=== PATIENT | female | born 1980 | race Caucasian/White ===

== ENCOUNTER 2023-12-23 12:24 | Day surgery (SDC) | payer OTHER ==
--- OUTSIDE RECORDS SUMMARY | 2023-12-23 12:27 | XMS REPORT | Continuity of Care Document ---
Author Name Unknown Address [address] [place] [address] [facility] thconnect Address [address] [place] [address] Care Team Providers Care Life Sciences Teacher Name Role Phone PCP, PATIENT DOES NOT HAVE A Primary Care Physic juanita Unavailable WAYNE ESCALERA Attending Clinician Unavail able Masha Self DO Attending Clinician [phone] MASHA SELF Attending Clinician Unavailab MASHA Moody Attending Clinician Unavailab Ni Baldwin RN Attending Clinician Unavailab radha Clay, Ang Db Test Attending Clinician UnavailRico Hay Attending Clinician [phone] RICO DUPONT Attending Clinician Unavailable Doctor Unassigned, [place] Attending Clinician U navailable Payers Payer Name Policy Type Policy Number Effective Date Expirati on Date Source Allergies, Adverse Reactions, Alerts Allergy Name Allergy Type Status Severity Reaction(s) Onset Date Inactive Date Treating Clinician Comments Source PROMETHA ZISUMANTH [employer] INGREDI Active Other-Cmnt 12-20 00:00: 00 [facility] Prometha zine Propensi ty to adverse reaction s to drug Active Other - See comments 12-20 00:00: 00 Muscle cramping. [facility] NO KNOWN ALLERGIE S Drug Class Active [facility] Social History Social Habit Start Date Stop Date Quantity Comments Source Sexual orientation U [facility] Exposure to SARS-CoV-2 (event) Not sure [facility] Sex assigned at 1980 00:00:00 1980 00:00:00 [facility] Smoking Status Start Date Stop Date Source Tobacco smoking consumption unknown [facility] Medications Ordered Medication Name Filled Medication Name Start Date Stop Date Current Medication? Ordering Clinician Indication Dosage Frequency Signature (SIG) Comments Components Source ketorolac (TORADOL) injection 30 mg 12-20 18:00: 00 12-20 18:04 :00 No 30mg 30 mg, Slow IV Push, ONCE, 1 dose, On Wed12/21/23 at 1300, Routine [facility] NaCl 0.9% (NS) bolus infusion 1,000 mL 12-20 18:00: 00 12-20 19:20 :00 No 1000mL at 999 mL/hr, 1,000 mL, IV Infusion, ONCE, 1 dose, On Wed12/21/23 at 1300, MANN [facility] ondansetron (ZOFRAN (PF)) injection 4 mg 12-20 17:15: 00 12-20 18:04 :00 No 4mg 4 mg, Slow IV Push, ONCE, 1 dose, On Wed12/21/23 at 1215, MANN [facility] ketorolac 10 mg tablet 12-20 00:00: 00 Yes [id number] 10mg Take 1 tablet by mouth every 6 (six) hours as needed for Pain (scale 1-3). [facility] ondansetron 4 mg disintegrat ing tablet 12-20 00:00: 00 Yes [id number] 4mg Take 1 tablet by mouth every 8 (eight) hours as needed for Nausea and Vomiting (N/V). [facility] Vital Signs Vital Name Observation Time Observation Value Comments Saba stacey Systolic blood pressure 2023-12-21 19:20:00 121 mm[Hg] [facility] Diastolic blood pressure 2023-12-21 19:20:00 78 mm[Hg] [facility] Heart rate 2023-12-21 19:20:00 [facility] Body temperature 2023-12-21 19:20:00 36.72 [facility] Oxygen saturation in Arterial blood by Pulse oximetry 2023-12-21 19:20:00 100 /min [facility] Respiratory rate 2023-12-21 16:58:00 18 /min [facility] Body height 2023-12-21 16:58:00 172.7 cm [facility] Body weight 2023-12-21 16:58:00 67.132 kg [facility] BMI 2023-12-21 16:58:00 22.50 kg/m2 [facility] Procedures Procedure Date / Time Performed Performing Clinicia n Source COMP. METABOLIC PANEL (87038) 2023-12-21 17:12:00 Masha Self [facility] CBC WITH DIFF 2023-12-21 17:12:00 [facility]IS 2023-12-21 17:12:00 M[facility] Encounters Start Date/Time End Date/Time Encounter Type Admission Type Attending [facility] Care Facility Care Department Encounter ID Source 2023-12-23 07:49:00 [facility] [id number] [facility] 2023-12-21 12:01:00 2023-12-21 14:29:00 Emergency Masha Self [facility] [id number] [facility] 2023-12-21 12:01:00 2023-12-21 14:29:00 Emergency X MASHA SELF SANDRA [facility] ERT [id number] [facility] 2021-01-12 00:00:00 2021-01-12 00:00:00 Letter (Out) Ni Goldsmith [facility] [id number] [facility] 2021-01-11 17:31:46 2021-01-11 17:41:46 Laboratory Only Only, Ang Db Test Tyreljohnathonsheeba Lázaroadelfo [facility] Eddie Rodriguez?[facility] [id number] [facility] 2021-01-11 17:30:00 2021-01-11 17:30:00 Outpatient R HARVEYSheebaRICO [facility] [id number] [facility] 2021-01-11 00:00:00 2021-01-11 00:00:00 Letter (Out) Doctor Unassigned, [place] [id number] [facility] 2021-01-11 00:00:00 2021-01-11 00:00:00 Letter (Out) Doctor Unassigned, [place] [id number] [facility] 2021-01-11 00:00:00 2021-01-11 00:00:00 Letter (Out) Doctor Unassigned, [place] [id number] [id number] [facility] 2021-01-11 00:00:00 2021-01-11 00:00:00 Letter (Out) Doctor Unassigned, [place] [id number] [facility] Results Test Description Test Time Test Comments Results Resul t Comments Source SCR MAMM BILATERAL ROMERO CAD DIGITAL 2021-05-22 10:10:48 Name: Lissa : 1980 Sex: F - SCR MAMM BILATERAL ROMERO CAD DIGITALBILATERAL DIGITAL SCREENING MAMMOGRAM 3D/2D WITH CAD: 2CLINICAL: Asymptomatic Family history of breast cancer, Mother, 66.Family history of breast cancer, Maternal Grandmother, 55. Digital breast tomosynthesis was performed in addition to routine CC and MLO views. Current mammographic images were evaluated by [employer] Image[employer] CAD (computer-aided detection) software. No prior exams were available for comparison. The tissue of both breasts is heterogeneously dense. This may lower the sensitivity of mammography. There are benign-appearing calcifications in both breasts. There also are post operative findings in the left breast. Bilateral breast implants are intact. No suspicious mass, architectural distortion, malignant type calcification, or lymph node abnormality detected. IMPRESSION: BENIGNThere is no mammographic evidence of malignancy. Resume annual screening mammography in one year. RECOMMEND SUPPLEMENTAL BILATERAL SCREENING BREAST ULTRASOUND DUE TO DENSE BREAST TISSUE AND FAMILY HISTORY OF BREAST CANCER (lifetime risk score: 22.4%).[employer] [place] [employer] recommends annual screening breast MRI in addition to mammography for women with a lifetime risk of breast cancer greater than 20%. Charity Leonardo M.D. scg/:05/22/2021 10:10:48 Nuts And Bolts Assembler: Susana Pressley MM, [facility] Mammographyletter sent: BIRADS 1-2 Normal Mammogram BI-RADS: 2 Benign Notes Date/Time Note Provider Source 2023-12-21 11:54:42 Patient c/o flank pain on the right side, vomiting. States that she has a history of kidney stones in the past. Started having pain on Wednesday, but subsided. Reoccurred today with symptoms worsening. 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 History of Present Illness: The patient presents from home for evaluation for right sided flank pain that started on Wednesday and went away and then returned today, which is Wednesday. She denies any injury or trauma. She does have a history of kidney stones and feels like this is another 1. No dysuria or hematuria. She also complains of nausea and vomit started today. No fevers or chills. No medication taken prior to arrival. She has required a ureter stent as well as lithotripsy with her prior kidney stones. She reports her last period was 2 weeks ago and she denies being . Here prevention. Past Medical History/Immunizations: History reviewed. No pertinent past medical history. Tetanus received in last 5 years: Unknown Allergies: Allergies Allergen Reactions Promethazine Other - See comments Muscle cramping. Past Social History: Substance & Sexual Activity No substance use or sexual activity history on file. Past Surgical History: History reviewed. No pertinent surgical history. Review of Systems: Review of Systems Physical Exam: ED Triage Vitals [12/21/23 1158] Weight 67.1 kg (148 lb) Actual or estimated Height 1.727 m (5' 8") BP (!) 149/90 Pulse 80 Resp 18 Temp 36.4 ?C (97.5 ?F) Temp source Oral SpO2 100 % Measured on Room air Physical Exam Radiology: CT ABDOMEN PELVIS WO CONTRAST Preliminary Result EXAM: CT ABDOMEN PELVIS WO CONTRAST HISTORY: 43 years-old Female; Right flank pain, kidney stone suspected . TECHNIQUE: Contiguous axial imaging from the level of the lung bases through the proximal thighs was performed without the intravenous administration of contrast. Coronal and sagittal reconstructions were obtained. COMPARISON: None FINDINGS: LOWER THORAX: The lung bases are clear. LIVER: The liver is normal in size and contour. No focal hepatic lesion is seen within the limitations of a non-contrasted examination. GALLBLADDER AND BILIARY TREE: The gallbladder is physiologically distended and appears unremarkable. No radiopaque gallstones are seen. No intra or extrahepatic biliary ductal dilation is visualized. SPLEEN: The spleen is normal in size. A splenule is present. PANCREAS: No ductal dilation or masses are visualized. ADRENAL GLANDS: No adrenal masses are seen. KIDNEYS: A 0.9 cm calculus is present in the right proximal ureter near the UPJ junction causing mild hydroureteronephrosis. A 0.5 cm right renal calyceal stone is also visualized. Punctate left cortical calcification is visualized. No contour deforming solid masses are visualized. PELVIS/BLADDER: The bladder is mildly distended. Circumferential bladder wall thickening with perivesical fat stranding is seen, may be secondary to underdistention versus cystitis. The uterus is anteverted and retroflexed. The uterus appears unremarkable. Multiple large follicles are seen in bilateral ovaries. The right ovary measures 3.4 x 5.2 cm and the left ovary measures 3.3 x 2.8 cm. GI TRACT: No dilation or bowel wall thickening is seen. The appendix appears unremarkable. A 0.3 cm appendicolith is present. PERITONEUM AND RETROPERITONEUM: No intra-abdominal free air or fluid collection is visualized. LYMPH NODES: No pathologically enlarged or morphologically abnormal lymph node is seen. VESSELS: The vessels appear unremarkable within limitations of a non-contrasted examination. BONES AND SOFT TISSUES: Schmorl's node is noted in the superior endplate of the T12 vertebral body. A subcentimeter sclerotic lesion is present in the L1 vertebral body, likely representing a bone island. IMPRESSION 1. A 0.9 cm calculus is present in the right proximal ureter near the UPJ junction causing mild hydroureteronephrosis. A 0.5 cm right nephrolithiasis. 2. Multiple large follicles are seen in bilateral ovaries, likely physiologic. Recommend further evaluation with ultrasound if clinically indicated. Preliminary Report Dictated by Resident: Andrade Smith Lab Results: Lab Results CBC WITH DIFF - Abnormal Result Value Ref Range WBC 15.18 (*) 4.30 - 11.10 10*3/?L RBC 4.60 3.93 - 5.25 10*6/?L HGB 13.6 11.6 - 15.0 g/dL HCT 41.0 35.7 - 45.2 % MCV 89.1 80.6 - 95.5 fL MCH 29.6 25.9 - 32.8 pg MCHC 33.2 31.6 - 35.1 g/dL RDW-SD 43.0 39.0 - 49.9 fL RDW-CV 13.1 12.0 - 15.5 % PLT 325 166 - 358 10*3/?L MPV 10.5 9.5 - 12.9 fL NRBC/100 WBC 0.0 0.0 - 10.0 /100 WBCs NRBC x10 3 <0.01 10*3/?L GRAN MAT (NEUT) % 87.3 % IMM GRAN % 0.50 % LYMPH % 8.5 % MONO % 3.5 % EOS % 0.0 % BASO % 0.2 % GRAN MAT x10 3 (ANC) 13.25 (*) 1.88 - 7.09 10*3/uL IMM GRAN x10 3 0.08 (*) 0.00 - 0.06 10*3/uL LYMPH x10 3 1.29 (*) 1.32 - 3.29 10*3/uL MONO x10 3 0.53 0.33 - 0.92 10*3/uL EOS x10 3 <0.03 (*) 0.03 - 0.39 10*3/uL BASO x10 3 0.03 0.01 - 0.07 10*3/uL URINALYSIS - Abnormal APPEARANCE Clear Clear COLOR Yellow Yellow PH 9.0 (*) 4.8 - 8.0 SP GRAVITY 1.015 1.003 - 1.030 GLU U QUAL Normal Normal BLOOD 1+ (*) Negative KETONES 5 mg/dL (*) Negative PROTEIN Negative Negative UROBILIN Normal Normal BILIRUBIN Negative Negative NITRITE Negative Negative LEUK LICO Negative Negative RBC/HPF 82 (*) 0 - 3 HPF WBC/HPF 3 0 - 5 HPF BACTERIA Few (*) Negative MUCOUS Slight (*) Negative LPF SQ EPITH 2 HPF TRANS EPI <1 <=1 HPF COMP. METABOLIC PANEL (89979) NA 138 135 - 145 mmol/L K 4.0 3.5 - 5.0 mmol/L CL 101 98 - 108 mmol/L CO2 TOTAL 27 23 - 31 mmol/L AGAP 10 2 - 16 BUN 12 7 - 23 mg/dL GLUCOSE 100 70 - 110 mg/dL CREATININE 0.59 0.50 - 1.04 mg/dL TOTAL BILI 0.5 0.1 - 1.1 mg/dL CALCIUM 9.2 8.6 - 10.6 mg/dL T PROTEIN 8.2 6.3 - 8.2 g/dL ALBUMIN 4.8 3.5 - 5.0 g/dL ALK PHOS 83 34 - 122 U/L ALTv 17 5 - 35 U/L AST(SGOT) 27 13 - 40 U/L eGFR 114.1 mL/min/1.73m2 POCT TEST POCT PREG Negative On board controls acceptable with C Line Yes POCT PREG LOT # POCT PREG TEST DATE EKG: If EKG completed, see Procedure Note. Orders and Treatments: Orders Placed This Encounter Procedures CT ABDOMEN PELVIS WO CONTRAST CBC WITH DIFF COMP. METABOLIC PANEL (97041) URINALYSIS POCT TEST Orders Placed This Encounter Medications NaCl 0.9% (NS) bolus infusion 1,000 mL ondansetron (ZOFRAN (PF)) injection 4 mg ketorolac (TORADOL) injection 30 mg ketorolac 10 mg tablet ondansetron 4 mg disintegrating tablet First Provider Eval: ED Events Date/Time Event User Comments 12/21/23 1159 Medical Screening Begins MASHA SELF DO -- 12/21/23 1159 First Provider Evaluation MASHA SELF DO -- ED COURSE Diagnosis/Impression as of 12/21/23 1413 Flank pain Nausea and vomiting, unspecified vomiting type Ureteral stone with hydronephrosis Procedures: Procedures MDM: Medical Decision Making The patient presents from home for evaluation of right-sided flank pain. She had some pain on Wednesday however that went away on its own. She had no pain yesterday which was Wednesday and the pain returned again this morning which is Wednesday. She also complains of nausea and vomiting today. No dysuria or hematuria. No fevers or chills. No medication for her symptoms. She reports a history of kidney stones in the past and reports this feels like it. Vital signs are stable in the ER. Her abdomen is soft and nontender on examination. She has no CVA tenderness bilaterally. Differential diagnosis includes renal colic, UTI, pyelonephritis. Will check laboratory studies and urinalysis were Will see the patient pain medication and obtain a CT of her abdomen and pelvis. A final disposition is pending. 1414 - the patient is doing well in the ER. Her pain has resolved with the medications given here in the ER. Her laboratory studies are unremarkable. Her urinalysis shows hematuria but no evidence of infection. The CT of her abdomen and pelvis shows 2 kidney stones on the right side with mild hydronephrosis. As she is currently pain-free will discharge patient home in stable condition with outpatient follow-up with urology. Advised to return to the ER if she is unable to tolerate by mouth or unable to control her pain. Problems Addressed: Flank pain: acute illness or injury Nausea and vomiting, unspecified vomiting type: acute illness or injury Ureteral stone with hydronephrosis: acute illness or injury Amount and/or Complexity of Data Reviewed Labs: ordered. Decision-making details documented in ED Course. Radiology: ordered and independent interpretation performed. Decision-making details documented in ED Course. Risk OTC drugs. Prescription drug management. Flowsheet Documentation: Scoring Tools: No data recorded Disposition/Condition: ED Disposition ED Disposition Disch - Home Condition Stable Comment -- Discharge Medications: Patient's Medications START taking these medications KETOROLAC 10 MG TABLET Take 1 tablet by mouth every 6 (six) hours as needed for Pain (scale 1-3). ONDANSETRON 4 MG DISINTEGRATING TABLET Take 1 tablet by mouth every 8 (eight) hours as needed for Nausea and Vomiting (N/V). CONTINUE taking these medications which have NOT CHANGED No medications on file START taking Modified Medications as Prescribed No medications on file STOP taking these medications No medications on file Follow-up: Contact information for follow-up Pcp, Patient Does Not Have A Relationship: PCP - [address] [place] [id number] Electronically signed by: Masha Self DO 12/21/23 1411 T [facility]
--- NOTE | 2023-12-23 12:46 | EDPHYS ---
Physician Documentation [facility] Name: Lissa Artis Age: 43 yrs Sex: Female : 1980 Arrival Date: 12/23/2023 Time: 12:24 Bed 20 Private MD: ED Physician Errol Enrique HPI: 12/22 12:42 This 43 yrs old Female presents to ER via Ambulatory with complaints of Sent By Dr yuval Fishman. 12:42 The patient complains of pain in the right mid back. The pain radiates to the abdomen. rn Onset: The symptoms/episode began/occurred 1 week(s) ago. Modifying factors: The symptoms are alleviated by nothing. the symptoms are aggravated by nothing. Severity of pain: At its worst the pain was moderate in the emergency department the pain is unchanged. The patient has experienced similar episodes in the past. Patient sent in by Dr. Fishman, is supposed to go to the OR with Dr. Fishman for intractable pain due to recently diagnosed kidney stone. Patient took imaging and blood work that was [address] Fishman in clinic today. Dr. Fishman called me, reports just needs IV and EKG and will take to the OR, does not need repeat imaging or blood work. Patient denies significant pain at this time, declines pain medication administration at this time.. CLINICAL SCIENCE CONSULTANT: 12:36 LMP 12/02/2023, unknown kc6 Historical: - Allergies: 12:36 Promethazine; kc6 - PMHx: 12:36 None; kc6 - PSHx: 12:36 breast augmentation; kc6 - Immunization history:: Adult Immunizations up to date. - Infectious Disease History:: Denies. - Social history:: Smoking status: Patient denies any tobacco usage or history of. - Family history:: not pertinent. - Hospitalizations: : No recent hospitalization is reported. ROS: 12:42 Constitutional: Negative for fever, chills, and weight loss, Cardiovascular: Negative rn for chest pain, palpitations, and edema, Respiratory: Negative for shortness of breath, cough, wheezing, and pleuritic chest pain, Abdomen/GI: Negative for abdominal pain, nausea, vomiting, diarrhea, and constipation, Back: Positive for right flank pain MS/Extremity: Negative for injury and deformity, Skin: Negative for injury, rash, and discoloration, Neuro: Negative for headache, weakness, numbness, tingling, and seizure, Exam: 12:42 Constitutional: This is a well developed, well nourished patient who is awake, alert, rn and in no acute distress. Vital Signs: 12:35 BP 154 / 82; Pulse 81; Resp 17 S; Temp 98.4(O); Pulse Ox 100% ; Weight 67.13 kg (R); kc6 Height 5 ft. 8 in. (R); Pain 0/10; 12:45 BP 148 / 89; Pulse 80; Resp 18; Pulse Ox 100% on R/A; db 12:35 Body Mass Index 22.50 (67.13 kg, 172.72 cm) kc6 12:35 Pain Scale: Adult kc6 MDM: 12:29 Patient medically screened. rn 12:42 Differential diagnosis: nephrolithiasis. Data reviewed: vital signs, nurses notes, and rn as a result, I will admit patient. Counseling: I had a detailed discussion with the patient and/or guardian regarding the historical points, exam findings, and any diagnostic results supporting the discharge/admit diagnosis, the need for further work-up and treatment in the hospital. ED course: Contacted OR, they are going to come get patient after EKG and IV placement.. 12/22 12:30 Order name: EKG; Complete Time: 12:30 rn 12/22 12:30 Order name: EKG - Nurse/Tech; Complete Time: 13:00 rn 12/22 12:30 Order name: NPO; Complete Time: 13:00 rn 12/22 12:30 Order name: IV Start; Complete Time: 13:00 rn Administered Medications: No medications were administered Disposition Summary: 12/23/23 12:45 Hospitalization Ordered Notes: Hospitalization Status: Observation rn Provider: Chalo Fishman rn Location: trial attorney Condition: Stable rn Problem: new rn Symptoms: are unchanged rn Bed/Room Type: Standard rn Room Assignment: rn Diagnosis - Calculus of ureter rn Forms: - Medication Reconciliation Form rn - SBAR form rn - Leadership Thank You Letter rn Signatures: Errol Enrique MD MD rn Campbell, Kaitlyn, RN RN kc6
--- NOTE | 2023-12-23 12:46 | ER ---
Nurse's Notes [facility] Name: Lissa Artis Age: 43 yrs Sex: Female : 1980 Arrival Date: 12/23/2023 Time: 12:24 Bed 20 Private MD: Diagnosis: Calculus of ureter Presentation: 12/22 12:35 Chief complaint: Patient states: she was sent here by Dr. Fishman for stent placement. kc6 states she two kidney stones she can't pass. reports right lower back pain. ate chips 45min ago. Coronavirus screen: At this time, the client does not indicate any symptoms associated with coronavirus-19. Ebola Screen: No symptoms or risks identified at this time. Initial Sepsis Screen: Does the patient meet any 2 criteria? No. Patient's initial sepsis screen is negative. Does the patient have a suspected source of infection? No. Patient's initial sepsis screen is negative. Risk Assessment: Do you want to hurt yourself or someone else? Patient reports no desire to harm self or others. Onset of symptoms was December 23, 2023. 12:35 Method Of Arrival: Ambulatory [facility] 12:35 Acuity: JEREMIAH 3 kc6 Triage Assessment: 12:36 General: Appears in no apparent distress. comfortable, well groomed, well developed, 6 Behavior is calm, cooperative, appropriate for age. Pain: Complains of pain in right low back. 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 - Infectious Disease History:: Denies. - Social history:: Smoking status: Patient denies any tobacco usage or history of. - Family history:: not pertinent. - Hospitalizations: : No recent hospitalization is reported. Screenin:30 [facility] ED Fall Risk Assessment (Adult) History of falling in the last 3 months, db including since admission No falls in past 3 months (0 pts) Confusion or Disorientation No (0 pts) Intoxicated or Sedated No (0 pts) Impaired Gait No (0 pts) Mobility Assist Device Used No (0 pt) Altered Elimination No (0 pt) Score/Fall Risk Level 0 - 2 = Low Risk. [facility] ED Fall Risk Assessment (Adult) Score/Fall Risk Level 0 - 2 = Low Risk Oriented to surroundings, Maintained a safe environment. Abuse screen: Denies threats or abuse. Denies injuries from another. Nutritional screening: No deficits noted. Tuberculosis screening: No symptoms or risk factors identified. Assessment: 12:30 Reassessment: Patient appears in no apparent distress at this time. Patient and/or db family updated on plan of care and expected duration. Pain level reassessed. Patient is alert, oriented x 3, equal unlabored respirations, skin warm/dry/pink. General: Appears in no apparent distress. comfortable, Behavior is calm, cooperative. Pain: Complains of pain in abdomen and right mid back and back. Neuro: Level of Consciousness is awake, alert, obeys commands, Oriented to person, place, time, situation. 13:04 Reassessment: OR NURSE AT PATIENT BEDSIDE. db Vital Signs: 12:35 BP 154 / 82; Pulse 81; Resp 17 S; Temp 98.4(O); Pulse Ox 100% ; Weight 67.13 kg (R); kc6 Height 5 ft. 8 in. (R); Pain 0/10; 12:45 BP 148 / 89; Pulse 80; Resp 18; Pulse Ox 100% on R/A; db 12:35 Body Mass Index 22.50 (67.13 kg, 172.72 cm) kc6 12:35 Pain Scale: Adult kc6 ED Course: 12:27 Patient arrived in ED. mg5 12:29 Errol Enrique MD is Attending Physician. rn 12:30 Patient has correct armband on for positive identification. Bed in low position. Call db light in reach. Side rails up X 1. Provided Education on: TO OR. Pulse ox on. NIBP on. 12:30 Warm blanket given. db 12:36 Triage completed. kc6 12:36 Arm band placed on. kc6 12:40 EKG done. Inserted saline lock: 22 gauge in right forearm, using aseptic technique. db Flushed with 10 mL NS. 12:45 Chalo Fishman MD is Hospitalizing Provider. rn 12:59 Adrienne Solis RN is Primary Nurse. db 13:04 No provider procedures requiring assistance completed. Patient admitted, IV remains in db place. Administered Medications: No medications were administered Medication: 12:30 VIS not applicable for this client. db Outcome: 13:03 Decision to Hospitalize by Provider. db 13:03 Admitted to OR accompanied by nurse, via wheelchair, with chart, Report called to BEDSIDE REPORT GIVEN 13:03 Condition: stable 13:04 Instructed on the need for admit, db 13:05 Patient left the ED. db Signatures: Errol Enrique MD MD rn Campbell, Kaitlyn, RN RN [email or web address] Adrienne Solis RN RN Rhea Cota 5 Corrections: (The following items were deleted from the chart) 13: 12:45 Decision to Hospitalize by Provider. rn db 13: 12:30 Admitted to OR accompanied by nurse, via wheelchair, with chart, Report called to db BEDSIDE REPORT GIVEN db : 12:30 Condition: stable db db 13: 12:30 Instructed on the need for admit, db db : 12:30 No provider procedures requiring assistance completed. db db 13: 12:30 Patient admitted, IV remains in place. db db
[2023-12-23] MEDS ORDERED: KETOROLAC 30 MG/ML INJ ONE (12:57)
[2023-12-23] MEDS ORDERED: LIDOCAINE 1% MPF 5 ML VIAL ONE (12:57)
[2023-12-23] MEDS ORDERED: ONDANSETRON 4 MG/2 ML VIAL ONE (12:57)
[2023-12-23] MEDS ORDERED: FENTANYL CITR 100 MCG/2 ML ONE (12:58)
[2023-12-23] MEDS ORDERED: propofoL 200 MG/20 ML VIAL IV ONE (12:58)
[2023-12-23] MEDS ORDERED: MIDAZOLAM HCL 2 MG/2 ML INJ ONE (12:58)
[2023-12-23] MEDS ORDERED: Ringers Lactate 1,000 ML IV ONE (13:05)
[2023-12-23] MEDS ORDERED: NA CIT/CITRIC AC 30 ML ORAL UDC ONE (13:08)
[2023-12-23] MEDS ORDERED: ROCURONIUM 50 MG/5 ML VIAL IV ONE (13:19)
[2023-12-23] MEDS ORDERED: SUCCINYLCHOLINE 20 MG/ML (10 ML) IV ONE (13:21)
[2023-12-23] MEDS ORDERED: dexAMETHasone 10 MG/ML VIAL ONE (13:25)
[2023-12-23] MEDS: CEFTRIAXONE 1,000 MG in NA CHLORIDE 0.9% 50 ML IVPB ONE (14:00)
[2023-12-23] MEDS ORDERED: CODEINE 30MG/APAP 300MG TAB PO PRN (14:37)
[2023-12-23] MEDS ORDERED: PHENAZOPYRIDINE 100MG TAB PO ONE (14:37)
--- NOTE | 2023-12-23 14:38 | RAD REPORT ---
EXAM DESCRIPTION: RAD - Urethrocystogrphy Retrograde - 12/23/2023 2:30 pm CLINICAL HISTORY: RT RETROGRADE PYEOGRAPHY, RT STENT PLACEMENT COMPARISON: <Comparisons> FINDINGS: Total fluoro time: 0.06 minutes
[2023-12-23 14:41] VITALS: O2SAT 100
[2023-12-23 15:16] VITALS: BP 141/83; TEMP 97
--- NOTE | 2023-12-23 18:56 | OP ---
Date of Procedure: 12/23/2023 Surgeon: AKBAR GRAY Preoperative Diagnoses: 1.Right ureterolithiasis. 2.Right hydronephrosis. 3.Right nephrolithiasis. 4.Right hydronephrosis. 5.Right flank pain. 6.Recurrent nephrolithiasis. Postoperative Diagnoses: 1.Right ureterolithiasis. 2.Right hydronephrosis. 3.Right nephrolithiasis. 4.Right hydronephrosis. 5.Right flank pain. 6.Recurrent nephrolithiasis. Principal Procedures: Cystoscopy with right retrograde pyelography and right ureteral stent placemen t. Indication For Procedure: Ms. Artis is a recurrent stone former, who presented to the Urology Clinic today with intractable pain and nausea associated with an obstructing 9 mm proximal ureteral calculu s observed when she went to the emergency department at [facility] with severe pain on Wednesday. T he pain began on Wednesday, and she has a history of kidney stones, requiring surgical intervention on 2 prior occasions over 15 years ago. As a result, she was counseled on the less than 10% likelihood o f being able to spontaneously pass the stone and recommended for surgical intervention. Because she had had some shaking chills in the absence of an effort to document whether or not she had fever, we recommended only cystoscopy and stent placement today as opposed to an attempt at ureteroscopic inter vention. Procedure In Detail: The patient was consented in the preoperative holding area before being transfe rred to the operative suite where general anesthesia was induced. She was given ceftriaxone 1 g IV a ntimicrobial prophylaxis, and pneumo boots were provided for DVT prophylaxis. She was placed in the lithotomy position, padded and secured to the table appropriately. Her genitalia were prepped with H ibiclens and she was draped in standard fashion. The case was begun using a 22-Martiniquais rigid cystosco pe to traverse the urethra and into the bladder. The bladder was surveyed in its entirety, and there were no papillary mucosal lesions, foreign bodies, or stones noted throughout. The ureteral orifice s were orthotopic in location and slightly stenotic in appearance. As a result, I required the tip o f the Sensor wire to gain access into the orifice on the right and ultimately advanced the 5-Martiniquais u reteral access catheter over the wire into the distal ureteral orifice. I then performed a retrograd e pyelogram. Right retrograde pyelography: Using a 70:30 mixture of Omnipaque and saline, I injected contrast via the lumen of the 5-Martiniquais ureteral access catheter and it did propagate up the distal into the mid a nd proximal ureter where it reached a point of radiopaque obstruction in the proximal ureter. This w as consistent with a 9 mm calculus observed, and with an additional bolus of contrast, the contrast d id surpass the obstructing stone and entered a moderately dilated renal pelvis with mild to moderate caliectasis. As a result, I advanced the Sensor wire via the 5-Martiniquais ureteral access catheter up be yond the stone coiling it within the renal pelvis before passing a 6-Martiniquais x 26 cm double-J ureteral stent over the wire, ultimately into the renal pelvis where a coil was formed fluoroscopically and 1 cystoscopically was formed in her bladder. Of note, the drainage from the kidney did evidence signs of papillary necrosis. The patient was then taken out of the lithotomy position after her bladder w as decompressed and the cystoscope was removed. She was then transferred to a stretcher after being awakened from general anesthesia, and then transferred to the recovery room in good condition. Complications: None. Discharge Disposition: She may be rescheduled promptly for definitive management via ureteroscopy wi th laser lithotripsy on the right side and stent exchange in the coming days to weeks or MANN. Preop erative evaluation will include the need for repeat urine culture. Otherwise, the remaining tests sh ould be in good condition. After management of the stone, she will ultimately require metabolic ston e profile assessment via [employer] to determine why she is forming recurrent kidney stones and to prevent futur e stone forming event. WR/MODL Voice ID: [id number] Report ID: [id number]
--- NOTE | 2023-12-24 14:09 | EKG ---
Test Date: 2023-12-23 Test Time: 12:57:04 [employer] Supervisor: RADHA MEASUREMENT RESULTS: Intervals: Rate: 72 [place]: 122 QRSD: 76 QT: 406 QTc: 444 [place]: P: 71 [place]: 122 QRS: 74 T: 52 INTERPRETIVE STATEMENTS: Normal sinus rhythm Normal ECG Compared to ECG 08/27/2003 17:22:00 No significant changes Electronically Signed On 12-24-23 14:05:49 CDT by Gibran Downs
== END 2023-12-23 15:45 | disposition home or self-care (01) ==
LOC: ER 12:24 → DS 15:02
PROVIDERS: ATTEND Urology
PROC: 0T768DZ Dilation of Right Ureter with Intraluminal Device, Via Natural or Artificial Opening Endoscopic (ICD-10-PCS; principal; 2023-12-23 13:00)
DX: N13.2 Hydronephrosis with renal and ureteral calculous obstruction (principal); R10.9 Unspecified abdominal pain; Z87.442 Personal history of urinary calculi
CPT/HCPCS: 74450; 51610; 52332; J2704; J2001; J2250; J3010; J1100; J2405; J7120; J0696; 93005

== ENCOUNTER 2024-01-04 07:17 | Day surgery (SDC) | payer OTHER ==
--- NOTE | 2024-01-04 12:44 | RAD REPORT ---
EXAM DESCRIPTION: CT - Tib Fib Right Wo Cont - 01/04/2024 12:31 pm CLINICAL HISTORY: tender anterior right lower extremity Pain and swelling COMPARISON: No comparisons FINDINGS: No fracture, dislocation or aggressive marrow lesion seen. No abnormal areas cortical thic kening seen. No soft tissue mass or hematoma. Muscle bulk is unremarkable. No knee joint effusion. IMPRESSION: No bone or joint abnormality is detected. If there is clinical suspicion or concern for avila splints or stress fracture, nuclear medicine bone scan may be useful for followup. All CT scans are performed using dose optimization technique as appropriate and may include automated exposure control or mA/KV adjustment according to patient size.
[2024-01-04] MEDS ORDERED: ONDANSETRON 4 MG/2 ML VIAL ONE (13:07)
[2024-01-04] MEDS ORDERED: MIDAZOLAM HCL 2 MG/2 ML INJ ONE (13:07)
[2024-01-04] MEDS ORDERED: propofoL 200 MG/20 ML VIAL IV ONE (13:07)
[2024-01-04] MEDS ORDERED: FENTANYL CITR 100 MCG/2 ML ONE (13:07)
[2024-01-04] MEDS: Ringers Lactate 1,000 ML IV ONE (13:13)
[2024-01-04 13:28] LABS: Absolute Basophils 0.1 K/uL (0-0.5); Absolute Eosinophils 0.1 K/uL (0-0.5); Absolute Monocytes 0.8 K/uL (0.1-1.3); Absolute Neutrophil 6.4 K/uL (1.8-8.0); Basophils % 0.7 % (0-1.3); Eosinophils % 1.4 % (0-4.4); Hemoglobin 12.8 g/dL (12.0-15.0); Lymphocytes % 28.5 % (15.3-44.8); MCH 29.4 pg (27.0-35.0); MCHC 33.7 g/dL (32.0-36.0); MCV 87.4 fL (80-100); MPV 8.1 fL (7.6-11.3); Monocytes % 7.8 % (3.3-12.3); Neutrophils % 61.6 % (41.7-73.7); Platelets 330 thou/uL (152-406); RBC Red Blood Cell Count 4.35 M/uL (3.86-4.86); Red Cell Distribution Width 13.5 % (12.1-15.2)
[2024-01-04] MEDS: AMPICILLIN SODIUM 2 GM/VIAL VIAL ONE (13:39)
[2024-01-04] MEDS: GENTAMICIN 80 MG/100 ML BAG 160 MG/200 ML BAG IV ONE (13:42)
[2024-01-04] MEDS ORDERED: dexAMETHasone 10 MG/ML VIAL ONE (13:44)
[2024-01-04 13:50] LABS: Specific Gravity 1.017 (1.005-1.030); Sqamous Epithelial <5 /HPF (None Seen); Transitional Epithelial <5 /HPF (None Seen); Urine Bacteria <20 /HPF (<20); Urine Bilirubin NEGATIVE (Negative); Urine Blood 3+ (OVER) (Negative); Urine Clarity Extremely Turbid (Clear); Urine Color Light-Yellow (Yellow); Urine Culture Reflex Order REFLEXED; Urine Glucose NEGATIVE (Negative); Urine Ketones TRACE (Negative); Urine Microscopic Reflex YN ORDER UMIC; Urine Mucus 1+ /HPF (None Seen); Urine Nitrite NEGATIVE (Negative); Urine Protein 1+ (Negative); Urine RBC >50 /HPF (None Seen); Urine Urobilinogen Normal (Normal); Urine WBC 20-50 /HPF (<5); Urine WBC Clump Rare /HPF (None Seen)
[2024-01-04 13:58] LABS: Urine Specific Gravity/Preg 1.025 (1.005-1.030)
[2024-01-04] MEDS ORDERED: KETOROLAC 30 MG/ML INJ ONE (14:30)
[2024-01-04 14:52] VITALS: O2SAT 100
[2024-01-04] MEDS: MEPERIDINE HCL 25 MG/ML SYR ONE (14:57)
[2024-01-04] MEDS ORDERED: HYDROCODONE/APAP 5/325 MG TAB ONE (15:49)
[2024-01-04] MEDS ORDERED: PHENAZOPYRIDINE 100MG TAB PO ONE (15:54)
[2024-01-04] MEDS: HYDROCODONE/APAP 5/325 MG TAB PO PRN (15:58)
[2024-01-04] MEDS: PHENAZOPYRIDINE 100MG TAB PO ONE (15:59)
--- NOTE | 2024-01-04 16:15 | P.PN ---
Date of Service: 01/04/24 43-year-old healthy woman recurrent stone former with 9 mm proximal obstructive ureterolithiasis, who underwent right ureteral stent placement last week on Wednesday, presented today for definitive ureteroscopy with laser lithotripsy, but she noted that on Wednesday, she developed sudden onset of some right avila area pain and swelling. She did some Internet research and was concerned about the potential for DVT; but she did not call the office and instead showed up to preop/day surgery with this issue. Examination: Patient reasonably well-appearing and in no acute distress Alert, awake, oriented x 3 No dyspnea or sign of respiratory distress Comfortable and well-appearing Lower extremities evaluation: No significant swelling appreciated, but possible mild right lateral lower tibial region swelling appreciable. No significant erythema, but tender to palpation over region approximately 4 to 5 cm in diameter. No Homans' sign bilaterally. Ambulatory without significant limitation noted Counseling and recommendation: I explained to the patient that because I do not evaluate musculoskeletal issues of the lower extremity and that I did not have strong suspicion that this represented a DVT, her best point of valor would be evaluation via the emergency department if and since she was unlikely to be able to be evaluated in a timely fashion by her PCP today. She was very concerned about this delaying or prohibiting surgical management of her stones. As a result, I referred her to the emergency department for evaluation. She went to the emergency department, but apparently there was a significant backlog with a dramatic wait time, and so she would be unable to be seen before I would be ready for her operatively. As a result, I made the following recommendations: -Obtain a CT of the right lower extremity tibial region -Duplex of the right lower extremity to rule out DVT -CBC to assess for sign of significant infection -If no abnormal findings noted, recommend she follow-up with her PCP or an orthopedic surgeon accordingly CT tib-fib right side without contrast: Impression: No bone or joint abnormality is detected. Nuclear medicine bone scan recommended if clinical suspicion or concern for shinsplints or stress fracture. Findings: No fracture, dislocation or aggressive marrow lesions seen. No abn ormal areas of cortical thickening seen. No soft tissue mass or hematoma. Muscle bulk is unremarkable. No knee joint effusion. Duplex ultrasound of the lower extremity venous: Impression: No evidence of right lower extremity DVT Duplex lower extremity arterial impression: No evidence of significant flow abnormality. Assessment and recommendation: 43-year-old healthy woman recurrent stone former with 9 mm right proximal obstructive ureterolithiasis and 5 mm nephrolithiasis with new complaint of right lower extremity swelling and tenderness/pain without abnormal finding on CT or duplex of the lower extremity. 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 -Approximately 35 to 45 minutes spent in this preoperative consultation
[2024-01-04 16:38] VITALS: BP 134/84; TEMP 97.8
--- NOTE | 2024-01-04 17:16 | RAD REPORT ---
EXAM DESCRIPTION: RAD - Urethrocystogrphy Retrograde - 01/04/2024 2:33 pm CLINICAL HISTORY: STENT EXCHANGE COMPARISON: None available. FINDINGS: Twenty-four Images were sent to PACS, documenting fluoroscopy use during image guided uret eral stent exchange procedure. No radiologist was available for the procedure, nor will any image int erpretation he provided. Please refer to the procedural report for additional details. Fluoroscopy time: 0:43 Minutes. IMPRESSION: Documentation of fluoroscopy utilization as above.
--- NOTE | 2024-01-05 01:42 | OP ---
Surgeon: AKBAR GRAY Preoperative Diagnoses: 1.Right 9 mm ureterolithiasis. 2.Right 5 mm nephrolithiasis. 3.Status post right ureteral stent placement. Postoperative Diagnoses: 1.Right 9 mm ureterolithiasis. 2.Right 5 mm nephrolithiasis. 3.Status post right ureteral stent placement. 4.Proximal right ureteral stricture disease. Principal Procedures: 1.Right ureteroscopy with pyeloscopy and laser lithotripsy. 2.Right proximal ureteral endoureterotomy using holmium laser. 3.Cystoscopy with right 7-Panamanian ureteral stent exchange. Indication For Procedure: Ms. Artis presented to the Urology Clinic with pain associated with an obs tructing 9 mm proximal UPJ stone on the right. Because of her significant degree of pain and suspici on for possible infection, she underwent urgent placement of a right ureteral stent, and she presents today for definitive management of that stone and an additional calculus potentially involving her r ight kidney. Procedure In Detail: The patient was consented in the preoperative holding area before being transfe rred to the operative suite, where general anesthesia was induced. She was given ampicillin 2 g and gentamicin 160 mg IV antimicrobial prophylaxis, and pneumo boots were provided for DVT prophylaxis. She was placed in the lithotomy position, padded and secured to the table appropriately. Her genital ia were prepped with Hibiclens, and she was draped in standard fashion. The case was begun using a 2 2-Panamanian rigid cystoscope to traverse the urethra and into the bladder with ease. The bladder was de compressed of fluid and urine, and then filled with saline and surveyed. No papillary mucosal lesion s, foreign bodies, or stones were noted. The right ureteral stent was the exception emanating from t he right ureteral orifice. I thus grasped the tip of the stent coil and delivered that tip to the ak atus leaving the proximal coil within the proximal right ureter. I then passed a Sensor wire via the stent and successfully coiled it beyond the stone in the upper pole calyces of the right kidney, pre sumptively. Over that Sensor wire, I removed the stent leaving the wire in place, and then passed a dual-lumen catheter over the wire into the mid and mid proximal ureter before it reached a point of r esistance and obstruction just distal to where the stone had been visible. I thus injected contrast to perform a retrograde study. Right retrograde pyelography: Using a 70:30 mixture of Omnipaque and saline, I injected the contrast via the second lumen of the dual-lumen catheter and it did propagate via end point of ureteral narro wing and slight tortuosity visible in the proximal ureter just distal to where the radiopaque calculu s had previously been visible. I thus attempted to pass the Bentson guidewire via the second lumen o f the dual-lumen catheter, as the contrast did show appropriate intraluminal localization and did ent er beyond the point of obstruction into the renal pelvis and calyces; however, the Bentson guidewire would not pass beyond the point of obstruction and simply coiled distal to the point of obstruction p reviously encountered. As a result, I coiled the Bentson wire in that spot and passed a 12 x 14-Fren ch ureteral access sheath over that Bentson guidewire into the proximal ureter just distal to the poi nt of obstruction observed. I then performed direct vision flexible ureteroscopy via the ureteral ac cess sheath and visualized the point of obstruction. It was noted to be a significant area of ureter al narrowing due to stricture disease that had occurred due to likely the impacted nature of the ston e in that location. I was able to find the Sensor wire and navigate passing the ureteroscope alongsi de the Sensor wire via a narrow opening inferolaterally in order to get into the proximal ureter and ultimately the renal pelvis and calyces. The area of ureteral narrowing did appear to be around 0.5 to 1 cm in maximal length, and the stone had been released from its impacted position proximal to the area of stricture disease and had been delivered into the renal pelvis and calyces at this point, so I entered the kidney and surveyed the renal pelvis and started in the upper pole calyces surveying t hem for the presence of any stone. No stones were noted. I then surveyed into the mid pole calyces, where I did not encounter any significant additional stone until in the mid lower pole calyx, the 9 mm calculus previously present at the UPJ was now visible. As a result, I utilized a 272 nm laser fi joanna at a power setting of 1 joule and 15 hertz to begin to fragment that stone into dust small enough to pass and smaller than the size of the laser fiber. I then increased the rate to 15 hertz, and th en eventually increased the power to dust the stones to 1.2 joules and 25 hertz. Once all the stone fragments were around the size of the tip of the laser fiber or smaller, I then surveyed back into th e mid and upper pole calyces for any significant stone fragments that may have been dislodged into th ose locations. I fragmented any larger fragments until they were again smaller than the tip of the l aser fiber. I then surveyed down into the mid and lower pole calyces. To confirm I had seen each of the calyces, I injected a bolus of contrast mixture via the ureteroscope delineating each of the karla yces and their branch points off the renal pelvis. I then used this to direct my scope down into the lower pole calyx, where I encountered the additional 5 mm calculus, which was still attached to the papilla. I then used the laser fiber at a power setting of 1 joule and 15 hertz to fragment that sto ne and release it from its papillary location. I then continued to fragment the dust until it was sm aller than or equal to the size of the laser fiber tip. Once each of the stones in the kidney had be en adequately fragmented, and I surveyed each other aspects of the kidney for any sign of significant residual burden of stone, I then surveyed back into the proximal ureter and the point of obstruction due to the ureteral stricture there. I then elected to employ the holmium laser fiber at a power of 1 joule and 15 hertz to incise a component of stricture disease that was present ventral laterally w ithin the ureter extending from around the 9 p.m. position to the 1 to 2 a.m. position. Once I incis ed that, I was then able to pass the ureteroscope with ease beyond the point of obstruction into the proximal ureter, which was otherwise healthy. I then removed the ureteroscope and replaced the cannu la for the 12 x 14-Panamanian ureteral access sheath, and I passed that ureteral access sheath all the wa y into the renal pelvis as ostensibly a dilator of the proximal ureteral stricture disease that had b een incised via endoureterotomy/endopyelotomy. I was able to pass the 14-Panamanian diameter ureteral ac cess sheath all the way into the collecting system with ease this time; so, I decompressed kidney of fluid and urine, and attempted to collect any stone dust that was now mostly present in the lower poncho e. No significant stone dust was obtained; so I removed the ureteral access sheath and injected cont rast via the inner cannula along the way to delineate the wide patency of the proximal ureter that wa s previously stenotic, and did observe a degree of contrast extravasation, which was completely expec deborah associated with the endoureterotomy performed. I thus removed the ureteral access sheath and the n back-loaded the cystoscope over the indwelling safety wire. I then passed a 7-Panamanian by 26 cm doub le-J ureteral stent over the Sensor wire into the collecting system with a coil observed fluoroscopic ally there and one cystoscopically formed in her bladder. I then decompressed her bladder of fluid a nd urine, and the patient was taken out of the lithotomy position. She was then awakened from genera l anesthesia before being transferred to a stretcher. She was then transferred to the recovery room in good condition. Complications: None. Discharge Disposition: I would like for her to keep the ureteral stent for at least 4 to 6 weeks to allow stable patency of the proximal ureteral stricture disease thereafter. I did consumer credit counselor the patien alfredo's family, Mother and Father, and provided detailed explanation to the patient about the presence of the ureteral stricture disease, so that she would understand the habitus for keeping the stent for t hat length of time. Subsequent followup should be established in 4 to 6 weeks' time for cystoscopy a nd right ureteral stent extraction in the Urology Clinic. I would like for her to leave a urine cult ure about a week prior to that scheduled extraction office visit, so that we can rule out any sign of infection that may serve to otherwise prohibit the ability to remove the stent. Subsequent followup should be established with [facility] metabolic evaluation performed, and she also would benefit from an ultrasound to assess for development of hydronephrosis about 2 to 3 months after the stent has be en removed. MOY/GENIL Voice ID: [id number] Report ID: [id number]
== END 2024-01-04 16:45 | disposition home or self-care (01) ==
LOC: OR 07:17
PROVIDERS: ATTEND Urology
PROC: 0TF68ZZ Fragmentation in Right Ureter, Via Natural or Artificial Opening Endoscopic (ICD-10-PCS; 2024-01-04)
PROC: 0T768DZ Dilation of Right Ureter with Intraluminal Device, Via Natural or Artificial Opening Endoscopic (ICD-10-PCS; 2024-01-04)
PROC: 0TF38ZZ Fragmentation in Right Kidney Pelvis, Via Natural or Artificial Opening Endoscopic (ICD-10-PCS; principal; 2024-01-04 08:30)
DX: N20.2 Calculus of kidney with calculus of ureter (principal); N13.30 Unspecified hydronephrosis; R10.9 Unspecified abdominal pain
CPT/HCPCS: 87088; 85025; 81001; 87086; 36415; 81025; 73700; 74450; 51610; 52356; J2704; J2250; J3010; J1100; J2175; J2405; J0290; J7120; J1580

== ENCOUNTER 2024-01-04 11:15 | Emergency (ER) | payer OTHER ==
--- NOTE | 2024-01-04 12:38 | RAD REPORT ---
EXAM DESCRIPTION: US - Extremity Venous Uni Ltd - 01/04/2024 12:27 pm CLINICAL HISTORY: Pain;Swelling Leg swelling and edema. COMPARISON: No comparisons FINDINGS: Right lower extremity venous system was interrogated with Doppler technique. Normal flow, compressibility and augmentation was noted. There is no DVT present. IMPRESSION: No evidence of right lower extremity deep venous thrombosis.
--- NOTE | 2024-01-04 12:39 | RAD REPORT ---
EXAM DESCRIPTION: US - Lower Extremity Artery Uni Ltd - 01/04/2024 12:27 pm CLINICAL HISTORY: PAIN COMPARISON: No comparisons FINDINGS: Sonographic interrogation of right upper extremity arterial system was performed Doppler t echnique. Triphasic waveforms are seen throughout the right lower extremity arterial system. No significant stefanie nosis or occlusion seen. IMPRESSION: No evidence of significant flow abnormality.
--- NOTE | 2024-01-04 12:57 | ER ---
Nurse's Notes [facility] Name: Lissa Artis Age: 43 yrs Sex: Female : 1980 Arrival Date: 01/04/2024 Time: 11:15 Bed DX4 Private MD: Diagnosis: Pain in right lower leg Presentation: 01/03 11:28 Chief complaint: Patient states: RIGHT LOWER LEG RED AND TENDER. STATES BECAME SWOLLEN db THIS AM. Coronavirus screen: Client denies travel out of the [place] in the last 14 days. At this time, the client does not indicate any symptoms associated with coronavirus-19. Ebola Screen: Patient negative for fever greater than or equal to 101.5 degrees Fahrenheit, and additional compatible Ebola Virus Disease symptoms Patient denies exposure to infectious person. Patient denies travel to an Ebola-affected area in the 21 days before illness onset. No symptoms or risks identified at this time. 11:28 Method Of Arrival: Ambulatory db 11:28 Initial Sepsis Screen: Does the patient meet any 2 criteria? No. Patient's initial ll1 sepsis screen is negative. Does the patient have a suspected source of infection? No. Patient's initial sepsis screen is negative. Risk Assessment: Do you want to hurt yourself or someone else? Patient reports no desire to harm self or others. Onset of symptoms was January 04, 2024. 11:28 Acuity: JEREMIAH 3 ll1 Triage Assessment: 11:32 General: Appears in no apparent distress. comfortable, Behavior is calm, cooperative. db Pain: Complains of pain in right leg. Neuro: Level of Consciousness is awake, alert, obeys commands, Oriented to person, place, time, situation. Respiratory: Airway is patent Respiratory effort is even, unlabored, Respiratory pattern is regular, symmetrical. Derm: Skin is red, Reports pain. 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 - Infectious Disease History:: Denies. - Social history:: Smoking status: Patient denies any tobacco usage or history of. - Family history:: not pertinent. - Hospitalizations: : No recent hospitalization is reported. Screenin:04 [facility] ED Fall Risk Assessment (Adult) History of falling in the last 3 months, ll1 including since admission No falls in past 3 months (0 pts) Confusion or Disorientation No (0 pts) Intoxicated or Sedated No (0 pts) Impaired Gait No (0 pts) Mobility Assist Device Used No (0 pt) Altered Elimination No (0 pt) Score/Fall Risk Level 0 - 2 = Low Risk Maintained a safe environment, Hourly rounding (assess needs \T\ fall precautionary measures) done. Abuse screen: Denies threats or abuse. Nutritional screening: No deficits noted. Tuberculosis screening: No symptoms or risk factors identified. Assessment: 13:04 Reassessment: No changes from previously documented assessment. left without discharge ll1 instructions. Was back in surgery when ready to be discharged. Vital Signs: 11:28 BP 170 / 92; Pulse 77; Resp 16; Temp 98.6; Pulse Ox 100% ; db ED Course: 11:18 Patient arrived in ED. mr 11:22 Errol Enrique MD is Attending Physician. rn 11:32 Arm band placed on Patient placed in waiting room. db 12:28 Extremity Venous Uni Ltd US In Process Unspecified. EDMS 12:28 Lower Extremity Artery Uni Ltd US In Process Unspecified. EDMS 13:05 Triage completed. ll1 13:05 No provider procedures requiring assistance completed. Patient did not have IV access ll1 during this emergency room visit. 13:06 Patient has correct armband on for positive identification. Provided Education on: ll1 return to ED for worsening symptoms. Administered Medications: No medications were administered Medication: 13:06 VIS not applicable for this client. ll1 Outcome: 12:56 Discharge ordered by . rn 13:05 Discharged to home ambulatory, ll1 13:05 Condition: stable 13:05 Discharge instructions given to patient, left without discharge instructions, was back in surgery already 13:07 Patient left the ED. ll1 Signatures: Dispatcher [employer] EDCT Leilani Rodríguez, Reg Reg mr Errol Enrique MD MD rn Lewis, Lynsay, RN RN ll1 Adrienne Solis RN RN db Corrections: (The following items were deleted from the chart) 11:34 11:32 Arm band placed on Patient placed in an exam room, db db
--- NOTE | 2024-01-04 12:57 | EDPHYS ---
Physician Documentation [facility] Name: Lissa Artis Age: 43 yrs Sex: Female : 1980 Arrival Date: 01/04/2024 Time: 11:15 Bed DX4 Private MD: ED Physician Errol Enrique HPI: 01/03 12:52 This 43 yrs old Female presents to ER via Ambulatory with complaints of Leg Pain. rn 12:52 The patient presents with pain, swelling. The complaints affect the anterior aspect of rn right ankle. Onset: The symptoms/episode began/occurred yesterday. Modifying factors: The symptoms are alleviated by nothing. the symptoms are aggravated by weight bearing. Severity of symptoms: At their worst the symptoms were mild, in the emergency department the symptoms are unchanged. The patient has not experienced similar symptoms in the past. Patient sent in by Dr. Fishman for right lower extremity pain and swelling. Once DVT ruled out as patient has surgery later today. Patient denies injury but does report walking on it a lot this past weekend. Hurts anterior and distal right lower leg just above ankle. No redness but patient states feels hot. No open wounds. No fever or chills. No history of DVT or PE. No pain in calf/popliteal region/thigh. Does not recall injury.. 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 - Infectious Disease History:: Denies. - Social history:: Smoking status: Patient denies any tobacco usage or history of. - Family history:: not pertinent. - Hospitalizations: : No recent hospitalization is reported. ROS: 12:52 Constitutional: Negative for fever, chills, and weight loss, Cardiovascular: Negative rn for chest pain, palpitations, and edema, Respiratory: Negative for shortness of breath, cough, wheezing, and pleuritic chest pain, Abdomen/GI: Negative for abdominal pain, nausea, vomiting, diarrhea, and constipation, MS/Extremity: Positive for pain to right lower extremity Neuro: Negative for headache, weakness, numbness, tingling, and seizure, Exam: 12:52 Constitutional: This is a well developed, well nourished patient who is awake, alert, rn and in no acute distress. Cardiovascular: Regular rate and rhythm. No pulse deficits. MS/ Extremity: Pulses equal, no cyanosis. Neurovascular intact. Full, normal range of motion. Equal circumference. Mild tenderness anterior distal pretibial region above ankle without skin changes or fluctuance. No streaking. No open wounds. No calf tenderness or tenderness in popliteal region or along venous system. No discoloration. No bony tenderness or deformity Vital Signs: 11:28 BP 170 / 92; Pulse 77; Resp 16; Temp 98.6; Pulse Ox 100% ; db MDM: 11:22 Patient medically screened. rn 12:52 Differential diagnosis: Strain, inflammation, undifferentiated pain, cellulitis, DVT. rn Data reviewed: vital signs, nurses notes, radiologic studies, ultrasound, and as a result, I will discharge patient. Counseling: I had a detailed discussion with the patient and/or guardian regarding the historical points, exam findings, and any diagnostic results supporting the discharge/admit diagnosis, radiology results, the need for outpatient follow up, to return to the emergency department if symptoms worsen or persist or if there are any questions or concerns that arise at home. Special discussion: I discussed with the patient/guardian in detail that at this point there is no indication for admission to the hospital. It is understood, however, that if the symptoms persist or worsen the patient needs to return immediately for re-evaluation. 12:52 ED course: Ultrasound venous and arterial ultrasounds negative for acute pathology. rn Recommend rest, anti-inflammatories and given return precautions.. 13:06 ED course: When patient was going to be discharged we were notified that she was rn already over in surgery.. 01/03 11:39 Order name: Extremity Venous Glowing Plant ; Complete Time: 12:46 rn 01/03 11:39 Order name: Lower Extremity Artery Glowing Plant US; Complete Time: 12:46 rn Administered Medications: No medications were administered Disposition Summary: 01/04/24 12:56 Discharge Ordered Notes: Location: Home rn Problem: new rn Symptoms: are unchanged rn Condition: Stable rn Diagnosis - Pain in right lower leg rn Followup: rn - With: Private Physician - When: As needed - Reason: Recheck today's complaints, Re-evaluation by your physician Discharge Instructions: - Discharge Summary Sheet rn - Musculoskeletal Pain rn Forms: - Medication Reconciliation Form rn - Antibiotic 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 EDMS EDMS
[2024-01-04 13:13] VITALS: BP 170/92; TEMP 98.6; O2SAT 100
--- OUTSIDE RECORDS SUMMARY | 2024-01-04 14:46 | XMS REPORT | Continuity of Care Document ---
Author Name Unknown Address [address] [facility] [address]. [address] [place] [address] [facility] thconnect Address [address] [facility]. [address] [place] [address] Care Team Providers Care Firmware Architect Name Role Phone PCP, PATIENT DOES NOT HAVE A Primary Care Physic juanita Unavailable WAYNE ESCALERA Attending Clinician Unavail MASHA Vera Attending Clinician UnavailMASHA Crenshaw Attending Clinician UnavailMasha Crenshaw DO Attending Clinician [phone] Agus MACDONALD, Ni Attending Clinician Unavailab Carter, Ang Db Test Attending Clinician Unavailclint e Rico Nicholson Attending Clinician RCIO PERRY Attending Clinician Unavailable Doctor Unassigned, Amaya Attending Clinician U MASHA De La Rosa Admitting Clinician Vin garcia Payers Payer Name Policy Type Policy Number Effective Date Expirati on Date Source TSHBP 90 DEGREE AND BENEFITS [id number] 2023 00:00:00 Problems Condition Name Condition Details Condition Category Status Onset Date Resolution Date Last Treatment Date Treating Clinician Comments Source [id number] Nephrouret erolithias is Problem [facility] [id number] Hydronephr osis, right Problem [facility] [id number] Right flank pain Problem [facility] [id number] Calculus of kidney Problem [facility] Allergies, Adverse Reactions, Alerts Allergy Name Allergy Type Status Severity Reaction(s) Onset Date Inactive Date Treating Clinician Comments Source [facility] Active Other-Cmnt 12-20 00:00: 00 [facility] Matthew riley Propensi ty to adverse reaction s to drug Active Other - See comments 12-20 00:00: 00 Muscle cramping. [facility] NO KNOWN ALLERGIE S Drug Class Active [facility] prometha lora prometha juniene Active Unknown [facility] Social History Social Habit Start Date Stop Date Quantity Comments Source History of Tobacco Use [facility] Sex Assigned At [facility] Sexual orientation [facility] Exposure to SARS-CoV-2 (event) Not sure [facility] Smoking Status Start Date Stop Date Source Tobacco smoking consumption unknown [facility] Never Smoker [facility] Medications Ordered Medication Name Filled Medication Name Start Date Stop Date Current Medication? Ordering Clinician Indication Dosage Frequency Signature (SIG) Comments Components Source ketorolac (TORADOL) injection 30 mg 12-20 18:00: 00 12-20 18:04 :00 No 30mg 30 mg, Slow IV Push, ONCE, 1 dose, On Wed12/21/23 at 1300, Routine [facility] NaCl 0.9% (NS) bolus infusion 1,000 mL 12-20 18:00: 00 12-20 19:20 :00 No 1000mL at 999 mL/hr, 1,000 mL, IV Infusion, ONCE, 1 dose, On Wed12/21/23 [facility] 1300[facility] (ZOFRAN (PF)) [facility] 4 mg 12-20 17:15: 00 12-20 18:04 :00 No 4mg 4 mg, Slow IV Push, ONCE, 1 dose, On Wed12/21/23 at 1215, [facility] mg tablet 12-20 00:00: 00 Yes [id number] 10mg Take 1 tablet by mouth every 6 (six) hours as needed for Pain (scale 1-3). [facility] ondansetron 4 mg disintegrat ing tablet 12-20 00:00: 00 Yes [id number] 4mg Take 1 tablet by mouth every 8 (eight) hours as needed for Nausea and Vomiting (N/V). [facility] Ondansetron HCl 4 MG Ondansetron HCl 4 MG No 1{table t} QD Ondansetro n HCl 4 MG Vital Signs Vital Name Observation Time Observation Value Comments S ource height 2023-12-23 08:15:00 68 [facility] 08:15:00 150.6 [lb_av] Co mmon [facility] temperature 2023-12-23 08:15:00 98.6 [degF] Com mon [facility] bmi 2023-12-23 08:15:00 22.9 kg/m2 [facility] oximetry 2023-12-23 08:15:00 99 % [facility] respiratory rate 2023-12-23 08:15:00 18 /min [facility] blood pressure systolic 2023-12-23 08:15:00 139 mm[Hg] [facility] blood pressure diastolic 2023-12-23 08:15:00 81 mm[Hg] [facility] Systolic blood pressure 2023-12-21 19:20:00 121 mm[Hg] [facility] Diastolic blood pressure 2023-12-21 19:20:00 78 mm[Hg] [facility] Heart rate 2023-12-21 19:20:00 77 /min [facility] Body temperature 2023-12-21 19:20:00 36.72 Shelley [facility] Oxygen saturation in Arterial blood by Pulse oximetry 2023-12-21 19:20:00 100 /min Ollie o f [facility] Respiratory rate 2023-12-21 16:58:00 18 /min [facility] Body height 2023-12-21 16:58:00 172.7 cm [facility] Body weight 2023-12-21 16:58:00 67.132 kg [facility] BMI 2023-12-21 16:58:00 22.50 kg/m2 [facility] Procedures Procedure Date / Time Performed Performing Clinicia n Source COMP. METABOLIC PANEL (79080) 2023-12-21 17:12:00 Masha Self [facility] CBC WITH DIFF 2023-12-21 17:12:00 [facility] 2023-12-21 17:12:00 [facility] En[facility] Start Date/Time End Date/Time Encounter Type Admission Type Attending [facility] Care Department Encounter ID Source 2023-12-23 07:49:00 [facility] [id number] [facility] 2023-12-23 00:00:00 2023-12-23 00:00:00 OFFICE VISIT NEW PT LEVEL [facility] [id number] [facility] 2023-12-21 12:01:00 2023-12-21 14:29:00 Emergency X MASHA SELF SAN[facility]A [facility] ERT [id number] [facility] 2023-12-21 12:01:00 2023-12-21 14:29:00 Emergency Masha Self [facility] [id number] [facility] 2021-01-12 00:00:00 2021-01-12 00:00:00 Letter (Out) Ni Goldsmith [facility] [id number] [id number] [facility] 2021-01-11 17:31:46 2021-01-11 17:41:46 Laboratory Only Only, Ang Db Test Rico Perry [facility] Eddie Rodriguez?[facility] [id number] [facility] 2021-01-11 17:30:00 2021-01-11 17:30:00 Outpatient R RICO PERRY [facility] [id number] [facility] 2021-01-11 00:00:00 2021-01-11 00:00:00 Letter (Out) Doctor Unassigned, Amaya [place] [id number] [id number] [facility] 2021-01-11 00:00:00 2021-01-11 00:00:00 Letter (Out) Doctor Unassigned, Amaya [place] [id number] [id number] [facility] 2021-01-11 00:00:00 2021-01-11 00:00:00 Letter (Out) Doctor Unassigned, Amaya [facility] [id number] [id number] [id number] [id number] [facility] 2021-01-11 00:00:00 2021-01-11 00:00:00 Letter (Out) Doctor Unassigned, Amaya [place] [id number] [id number] 4.2.7.2.686 [id number] [facility] Results Test Description Test Time Test Comments [...] views. Current mammographic images were evaluated by [employer] CAD (computer-aided detection) software. No prior exams [...] OF BREAST CANCER (lifetime risk score: 22.4%).The [place] [employer] recommends annual screening breast MRI in addition to mammography for women with a lifetime risk of breast cancer greater than 20%. Charity varela/:05/22/2021 10:10:48 Shelf Filler: Susana Pressley MM, [facility] Mammographyletter sent: BIRADS 1-2 Normal Mammogram BI-RADS: 2 Benign Notes Date/Time Note Provider Source 2023-12-21 11:54:42 Patient c/o flank pain on the right side, vomiting. States that she has a history of kidney stones in the past. Started having pain on Wednesday, but subsided. Reoccurred today with symptoms worsening. [facility] Couple 2023-12-21 11:50:00 [facility] Emergency Department Note Patient Name: Lissa Avalos Date of : 1980 43 year old female Treatment Room: [place] [address] Primary Care Physician: PATIENT DOES NOT HAVE A PCP Patient Escorted by: Self [9] Mode of Arrival: Personal means [1] EMS Treatment Prior to ED Arrival: DOCUMENTATION MANAGER treatment: None Travel and Exposure Screening: Symptoms [...] EPI <1 <=1 HPF COMP. METABOLIC PANEL (16878) NA 138 135 - 145 mmol/L K [...] CONTRAST CBC WITH DIFF COMP. METABOLIC PANEL (28554) URINALYSIS POCT TEST Orders Placed This Encounter [...] Does Not Have A Relationship: PCP - [place] [address] [facility] [id number] Electronically signed by: Masha Sefl DO 12/21/23 1413 [facility]
== END 2024-01-04 13:07 | disposition home or self-care (01) ==
LOC: ER 11:15
DX: M79.661 Pain in right lower leg (principal); Z98.82 Breast implant status
CPT/HCPCS: 93926; 93971